=== PATIENT | male | born 1955 | race African-American/Black ===

== ENCOUNTER 2017-06-29 18:44 | Emergency (ER) | payer MEDICARE ==
[2017-06-29] MEDS ORDERED: ACETAMINOPHEN 325 MG TABLET PO ONE (20:22)
--- NOTE | 2017-06-29 20:23 | ER Document Report ---
ED Medical Screen (RME) - General Chief Complaint: Low Back Pain Stated Complaint: BACK PAIN Time Seen by Provider: 06/29/17 20:21 Notes: 62-year-old male here with complaints of right lower back pain ongoing for the past few days. Pain is nonradiating. Pain is worse with movement. Pain is improved with minimizing movement. He has not taken anything for the pain. He denies numbness tingling weakness fevers chills IV drug use however he did snort cocaine and smoked marijuana yesterday. During nurses questioning, he states that he wants to kill himself by walking in front of a moving vehicle. He also states the voices tell him to kill himself. He has not been taking his psych medications and cannot tell me why. TRAVEL OUTSIDE OF THE [place] IN LAST 30 DAYS: No - Related Data Allergies/Adverse Reactions: No Known Allergies Allergy (Verified 06/29/17 18:50) Past Medical History - Social History Frequency of alcohol use: Occasional Drug Abuse: Cocaine, Marijuana - Past Medical History Cardiac Medical History: Reports: Hx Coronary Artery Disease, Hx Hypertension, Hx Peripheral Vascular Disease Pulmonary Medical History: Denies: Hx Tuberculosis Renal/ Medical History: Denies: Hx Peritoneal Dialysis Musculoskeltal Medical History: Reports Hx Arthritis Psychiatric Medical History: Reports: Hx Depression Past Surgical History: Denies: Hx Pacemaker - Immunizations Immunizations up to date: Yes Hx Diphtheria, Pertussis, Tetanus Vaccination: Yes - ordered today Physical Exam - Vital signs Vitals: Temp Pulse Resp BP Pulse Ox 98.6 F 63 16 146/86 H 100 06/29/17 19:12 06/29/17 19:12 06/29/17 19:12 06/29/17 19:12 06/29/17 19:12 Course - Vital Signs Vital signs: Temp Pulse Resp BP Pulse Ox 98.6 F 63 16 146/86 H 100 06/29/17 19:12 06/29/17 19:12 06/29/17 19:12 06/29/17 19:12 06/29/17 19:12
[2017-06-29 20:46] LABS: ABSOLUTE EOSINOPHILS # (AUTO) 0.2 10^3/uL (0.0-0.6); ABSOLUTE LYMPHOCYTES (AUTO) 1.4 10^3/uL (0.5-4.7); ABSOLUTE MONOCYTES (AUTO) 0.4 10^3/uL (0.1-1.4); BASOPHILS % (AUTO) 0.4 % (0-2); EOSINOPHILS % (AUTO) 3.3 % (0-6); HEMATOCRIT 43.8 % (37.9-51.0); HEMOGLOBIN 14.9 g/dL (13.5-17.0); LYMPHOCYTES % (AUTO) 27.9 % (13-45); MEAN CORPUSCULAR HEMOGLOBIN 32.1 pg (27.0-33.4); MEAN CORPUSCULAR HGB CONC 34.1 g/dL (32.0-36.0); MEAN CORPUSCULAR VOLUME 94 fl (80-97); MONOCYTES % (AUTO) 7.4 % (3-13); PLATELET COUNT 222 10^3/uL (150-450); RED BLOOD COUNT 4.64 10^6/uL (4.35-5.55); RED CELL DISTRIBUTION WIDTH 13.9 % (11.5-14.0); TOTAL CELLS COUNTED % (AUTO) 100 %
[2017-06-29 21:09] LABS: ALANINE AMINOTRANSFERASE 35 U/L (21-72); ALBUMIN 4.1 g/dL (3.5-5.0); ALKALINE PHOSPHATASE 73 U/L (38-126); ANION GAP 11 (5-19); ASPARTATE AMINO TRANSFERASE 22 U/L (17-59); BILIRUBIN,DIRECT 0.2 mg/dL (0.0-0.4); BILIRUBIN,TOTAL 0.8 mg/dL (0.2-1.3); BLOOD UREA NITROGEN 17 mg/dL (7-20); CARBON DIOXIDE 27 mmol/L (22-30); CHLORIDE 107 mmol/L (98-107); GLUCOSE 89 mg/dL (75-110); POTASSIUM 3.8 mmol/L (3.6-5.0); SODIUM 144.9 mmol/L (137-145)
[2017-06-29 21:15] LABS: ACETAMINOPHEN < 10 ug/mL (10-30); ALCOHOL < 10 mg/dL (NONE DETECTED); SALICYLATE < 1.0 mg/dL (2.0-20.0)
[2017-06-29 21:18] LABS: APPEARANCE,URINE SLIGHTLY-CLOUDY; BILIRUBIN,URINE NEGATIVE (NEGATIVE); COLOR,URINE YELLOW; GLUCOSE, URINE NEGATIVE (NEGATIVE); KETONES,URINE NEGATIVE (NEGATIVE); LEUKOCYTE ESTERASE,URINE NEGATIVE (NEGATIVE); NITRITE,URINE NEGATIVE (NEGATIVE); PROTEIN,URINE NEGATIVE (NEGATIVE); URINE SPECIFIC GRAVITY 1.023
[2017-06-29] MEDS ORDERED: IBUPROFEN 600 MG TABLET PO PRN (21:23)
[2017-06-29] MEDS ORDERED: ACETAMINOPHEN 325 MG TABLET PO PRN (21:23)
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
[2017-06-29 21:31] LABS: URINE AMPHETAMINES SCREEN NEGATIVE; URINE BARBITURATES SCREEN NEGATIVE; URINE BENZODIAZEPINES SCREEN NEGATIVE; URINE COCAINE SCREEN UNCONFIRMED POSITIVE; URINE MARIJUANA (THC) SCREEN NEGATIVE; URINE METHADONE SCREEN NEGATIVE; URINE PHENCYCLIDINE SCREEN NEGATIVE
[2017-06-30 06:22] VITALS: BP 140/80
--- NOTE | 2017-06-30 07:57 | EKG REPORT ---
SEVERITY:- ABNORMAL ECG - SINUS RHYTHM LEFT VENTRICULAR HYPERTROPHY ANTERIOR Q WAVES, POSSIBLY DUE TO [facility] ST ELEVATION SUGGESTS PERICARDITIS : Confirmed by: Julissa Catalan MD 30-Jun-2017 07:56:09
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
--- NOTE | 2017-06-30 12:42 | ER Document Report ---
ED General - General Chief Complaint: Low Back Pain Stated Complaint: BACK PAIN Time Seen by Provider: 06/29/17 20:21 TRAVEL OUTSIDE OF THE [place] IN LAST 30 DAYS: No - Related Data Allergies/Adverse Reactions: No Known Allergies Allergy (Verified 06/29/17 18:50) Past Medical History - General Information source: Patient - Social History Smoking Status: Current Every Day Smoker Frequency of alcohol use: Occasional Drug Abuse: Cocaine, Marijuana Family History: DM, Hypertension Patient has suicidal ideation: Yes Patient has homicidal ideation: No - Past Medical History Cardiac Medical History: Reports: Hx Coronary Artery Disease, Hx Hypertension, Hx Peripheral Vascular Disease Pulmonary Medical History: Denies: Hx Tuberculosis Renal/ Medical History: Denies: Hx Peritoneal Dialysis Musculoskeltal Medical History: Reports Hx Arthritis Psychiatric Medical History: Reports: Hx Depression Past Surgical History: Denies: Hx Pacemaker - Immunizations Immunizations up to date: Yes Hx Diphtheria, Pertussis, Tetanus Vaccination: Yes - ordered today Physical Exam - Vital signs Vitals: Temp Pulse Resp BP Pulse Ox 98.6 F 63 16 146/86 H 100 06/29/17 19:12 06/29/17 19:12 06/29/17 19:12 06/29/17 19:12 06/29/17 19:12 Course - Re-evaluation Re-evalutation: 06/30/17 12:42 Evaluated by mental health. I feel he is safe for discharge with substance abuse follow-up. - Vital Signs Vital signs: Temp Pulse Resp BP Pulse Ox 98.3 F 70 16 140/80 H 98 06/30/17 06:21 06/30/17 06:21 06/30/17 06:21 06/30/17 06:21 06/30/17 06:21 - Laboratory Result Diagrams: 06/29/17 20:30 06/29/17 20:30 Laboratory results interpreted by me: 06/29/17 06/29/17 20:30 20:45 Urine Blood SMALL H Urine Urobilinogen 2.0 H Salicylates < 1.0 L Acetaminophen < 10 L Discharge - Discharge Clinical Impression: Suicidal thoughts, Cocaine abuse, Marijuana abuse, Alcohol abuse Back pain Qualifiers: Back pain location: low back pain Chronicity: acute Back pain laterality: right Sciatica presence: without sciatica Qualified Code(s): M54.5 - Low back pain Condition: Stable Disposition: HOME, SELF-CARE Additional Instructions: LOW BACK PAIN: Three out of every four people will have an episode of disabling back pain during their lifetime. Most commonly the pain is due to straining of the muscles and ligaments in the low back. Usual treatment includes: (1) Rest on a firm surface. Avoid lying on your stomach. (2) Ice pack the painful area. After a few days, gentle heat may be used intermittently to relax the area, or ice packs can be continued. (3) Medication may be needed -- muscle relaxers and antiinflammatory medicines are commonly used. (4) As the back improves, exercises are prescribed to strengthen the back and abdominal muscles. Your doctor will advise you on the proper care for your back at each stage in your recovery. You may be better in a few days -- or healing may take several weeks. If new symptoms of a "herniated disc" (radiation of pain, numbness, or tingling down the back of the leg or weakness in the leg) occur, you should be re-examined. Further testing may be necessary. ICE PACKS: Apply ice packs frequently against the painful area. Many different schedules are recommended, such as "20 minutes on, 20 minutes off" or "one hour ice, two hours rest." If you need to work, you may need to go longer between ice treatments. You should plan to have the area ice packed AT LEAST one fourth of the time. The ice should be applied over the wrap, tape, or splint, or over a layer of cloth -- not directly against the skin. Some ice bags have a built-in cloth and can be put directly on the skin. WARM PACKS: After approximately two days, apply gentle heat (such as a heating pad or hot water bottle) for about 20 to 30 minutes about every two hours -- at least four times daily. Warmth and elevation will help you make a more rapid recovery , and will ease the pain considerably. Do not use HOT heat, and never apply heat for longer than 30 minutes. The continuous heat can invisibly damage skin and muscles -- even when no burn is seen on the surface. Damaged muscles can make you MORE sore. CHRONIC ALCOHOLISM and ALCOHOL ABUSE: Your evaluation reveals evidence of chronic alcoholism, an addiction to alcohol. The tendency to alcoholism may be inherited. Chronic use of alcohol weakens muscles, causes fatty deposits in the liver , damages the stomach, makes you more prone to infections, and can cause defects in unborn children. In the long run, brain atrophy and cirrhosis of the liver result. You are also at greater risk for certain types of cancer, such as cancer of the mouth, throat, stomach, and liver. Counselling services are available to help you. In-hospital treatment programs often help. Support groups such as Alcoholics Anonymous can be very useful in beating this addiction. Your physician can make a referral for you. As alcoholics often are prone to other addictions, you should discuss your use of any other medications with the doctor. COCAINE ABUSE: Cocaine causes many dangerous medical problems. Problems can occur even with "usual" amounts. Cocaine affects judgement, creating a sense of invulnerability. Cocaine users often make bad decisions that seem "great" at the time. Most cocaine users eventually will be hurt by bad job performance, damaged personal relations, crime, and unsafe sexual practices. Toxic effects of cocaine can include seizures, hallucinations, delusions, high blood pressure, heart damage, or sudden . There's always the risk of a "bad batch." But heart attacks, brain hemorrhages, or cardiac arrest can occur unpredictably even with "normal" use. Injection of cocaine is risky for abscesses, endocarditis (heart infection) , pneumonia, and AIDS. Withdrawal from cocaine often causes anxiety and drug cravings. Some users become paranoid and psychotic. Many treatment programs are available, but you must make the decision to quit. Medication can be prescribed to control the symptoms of cocaine toxicity (beta blockers or benzodiazepines). Withdrawal symptoms may require tranquilizers. FOLLOW-UP CARE: If you have been referred to a physician for follow-up care, call the physician s office for an appointment as you were instructed or within the next two days. Please walk into [facility] upon discharge for your substance abuse treatment. If you experience worsening or a significant change in your symptoms , notify the physician immediately or return to the Emergency Department at any time for re-evaluation. Referrals: [facility] [Outside] - 06/30/17 FRANKO CASTANEDA MD [ACTIVE STAFF] - Follow up as needed
== END 2017-06-30 01:09 | disposition home or self-care (01) ==
LOC: ER 18:44
DX: M54.5 Low back pain (principal); F32.9 Major depressive disorder, single episode, unspecified; R45.851 Suicidal ideations; F12.10 Cannabis abuse, uncomplicated; F14.10 Cocaine abuse, uncomplicated; F10.10 Alcohol abuse, uncomplicated; F17.200 Nicotine dependence, unspecified, uncomplicated; I25.10 Atherosclerotic heart disease of native coronary artery without angina pectoris; I10 Essential (primary) hypertension; Z87.440 Personal history of urinary (tract) infections
CPT/HCPCS: 93005; 99285; 36415; 80307 ×4; 85025; 80053; 81001; 93010; A9270 ×2

== ENCOUNTER 2019-07-30 10:43 | Emergency (ER) | payer MEDICAID, MEDICARE ==
[2019-07-30] MEDS ORDERED: NORMAL SALINE 1000 ML 1,000 ML IV ONE (11:50)
[2019-07-30] MEDS ORDERED: ONDANSETRON HCL INJ/PF 4 MG/2 ML SDV IV ONE (11:50)
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
--- NOTE | 2019-07-30 12:23 | ER Document Report ---
ED General <CHAVO PENALOZA - Last Filed: 07/30/19 16:10> - General TRAVEL OUTSIDE OF THE [place] IN LAST 30 DAYS: No <MINDI MENESES - Last Filed: 07/30/19 18:57> - General Chief Complaint: Psych Problem Stated Complaint: VOMITING,CHILLS Time Seen by Provider: 07/30/19 11:40 Primary Care Provider: [facility] [Provider Group] - Follow up as needed [facility] [Provider Group] - Follow up as needed FRANKO CASTANEDA MD [Primary Care Provider] - Follow up in 3-5 days - [facility] Notes: 64-year-old male to the emergency department with complaints of nausea, vomiting, diarrhea, generalized abdominal pain as well as depression with thoughts of suicide with plan. He states over the past 2 to 3 days he has been getting progressively sicker with nausea vomiting and diarrhea. He is currently homeless and has been homeless for several months and states that several people in the [facility] are sick with something similar. He states that his symptoms got a lot worse yesterday and he has had upwards of 20 episodes of vomiting and diarrhea. He states that he has been running a fever and chills subjectively. He admits that sometimes he feels little short of breath or like he has chest pain and that seems to be alleviated by the vomiting. He states that his entire abdomen hurts but a little bit more so in the epigastrium. He denies any recent travel or recent antibiotic use. He denies any hematemesis or hematochezia. He denies any bright red blood per rectum. In regards to his depression he states that he has been depressed for some time now but is just feeling like his life is not worth it anymore. He states that he has had thoughts of wanting to hurt himself with the plan of either overdosing or stepping out in front of traffic. He also reports hearing voices. He states they are not familiar to him and the voices are telling him to "go on and do it". He has attempted suicide once remotely and cannot recall when. He is not currently on any psychotropic drugs. He does freely admit that he uses cocaine, crack, and marijuana on a daily basis. He states he uses primarily to try to shut out the voices. 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 He does have family in the area but he does not talk to them very much. He denies any he homicidal ideations. He does drink alcohol daily. (MINDI MENESES) - Related Data Allergies/Adverse Reactions: No Known Allergies Allergy (Verified 07/30/19 11:38) Past Medical History - General Information source: Patient - Social History Smoking Status: Current Every Day Smoker Frequency of alcohol use: Social Drug Abuse: Cocaine, Marijuana Lives with: Homeless Family History: DM, Hypertension Patient has suicidal ideation: No Patient has homicidal ideation: No - Past Medical History Cardiac Medical History: Reports: Hx Coronary Artery Disease, Hx Hypertension, Hx Peripheral Vascular Disease Pulmonary Medical History: Denies: Hx Tuberculosis Renal/ Medical History: Denies: Hx Peritoneal Dialysis Musculoskeletal Medical History: Reports Hx Arthritis Psychiatric Medical History: Reports: Hx Depression Past Surgical History: Denies: Hx Pacemaker - Immunizations Immunizations up to date: Yes Hx Diphtheria, Pertussis, Tetanus Vaccination: Yes - ordered today <MINDI MENESES - Last Filed: 07/30/19 18:57> Review of Systems - Review of Systems Constitutional: See HPI, Chills, Fever, Malaise EENT: No symptoms reported Cardiovascular: See HPI, Chest pain. denies: Palpitations, Heart racing, Dyspnea, Syncope, Dizziness, Lightheaded Respiratory: See HPI, Cough, Short of breath Gastrointestinal: See HPI, Abdominal pain, Diarrhea, Nausea, Vomiting. denies: Blood streaked bowels, Black stools, Rectal bleeding Genitourinary: No symptoms reported Musculoskeletal: No symptoms reported Skin: No symptoms reported Neurological/Psychological: See HPI, Hallucinations, Suicidal ideation. denies: Homicidal ideation -: Yes All other systems reviewed and negative <MINDI MENESES - Last Filed: 07/30/19 18:57> Physical Exam - Vital signs Interpretation: Normal - General General appearance: Appears well, Alert In distress: None - HEENT Head: Normocephalic, Atraumatic Eyes: Normal Pupils: PERRL - Respiratory Respiratory status: No respiratory distress Chest status: Nontender. No: Accessory muscle use Breath sounds: Normal. No: Rales, Rhonchi, Stridor, Wheezing Chest palpation: Normal - Cardiovascular Rhythm: Regular Heart sounds: Normal auscultation Murmur: No - Abdominal Inspection: Normal Distension: No distension Bowel sounds: Normal Tenderness: Tender - Mildly tender to palpation to the generalized abdomen. May be slightly more tender in the epigastrium. Negative Yañez sign. There is no rebound or guarding. The abdomen is soft, flat and nondistended. No: McBurney's point, Yañez's sign, Guarding, Rebound Organomegaly: No organomegaly - Back Back: Normal, Nontender. No: CVA tenderness - Neurological Neuro grossly intact: Yes Cognition: Normal Orientation: AAOx4 [place] Coma Scale Eye Opening: Spontaneous Karen Coma Scale Verbal: Oriented Karen Coma Scale Motor: Obeys Commands [place] Coma Scale Total: 15 Speech: Normal Cranial nerves: Normal Cerebellar coordination: Normal Motor strength normal: LUE, RUE, LLE, RLE Additional motor exam normals: Equal chief engineer's helper. No: Pronator drift Sensory: Normal - Psychological Associated symptoms: Auditory hallucinations, Depressed, Flat affect. No: Visual hallucinations - Skin Skin Temperature: Warm Skin Moisture: Dry Skin Color: Normal <MINDI MENESES - Last Filed: 07/30/19 18:57> - Vital signs Vitals: Temp Pulse Resp BP Pulse Ox 97.8 F 63 17 144/94 H 100 07/30/19 10:48 07/30/19 10:48 07/30/19 10:48 07/30/19 10:48 07/30/19 10:48 - Cardiovascular Notes: No pedal edema (MINDI MENESES) - Psychological Notes: Patient reports active suicidal ideations with plan to either overdose or jump into traffic. Patient is slightly withdrawn but very open about was going on with his mental health. He does admit to auditory voices. They are telling him to hurt himself. It does not appear that he is responding to internal stimuli currently. His thought does seem to be linear. He is clinically sober (MINDI MENESES) Course - Laboratory Result Diagrams: 07/30/19 12:44 07/30/19 12:44 <CHAVO PENALOZA - Last Filed: 07/30/19 16:10> - Laboratory Result Diagrams: 07/30/19 12:44 07/30/19 12:44 <MINDI MENESES - Last Filed: 07/30/19 18:57> - Re-evaluation Re-evalutation: 07/30/19 15:14 patient states he is feeling like he may have an appetite. Provided with drink, applesauce, reggie crackers. Noted labs, slight LOUIS -- will give another bolus of fluids. 07/30/19 17:27 Patient has done well tonight in the emergency department. He has tolerated applesauce reggie crackers Gatorade zeny mandy and is currently eating a turkey sandwich as well. He has been seen and evaluated by behavioral health. He denies suicidal ideations currently or any plan to hurt himself. He has been given information for substance abuse programs. He has been cleared from the behavioral health services. Impression: Nausea, vomiting, diarrhea, mild dehydration. Depression. Homelessness. Patient has done well in the emergency department today. He has a soft nontender abdomen on reexam. He has been tolerating food very well and asking for more. Plan will be to discharge the patient home. We will have him follow-up with primary care. (MINDI MENESES) - Vital Signs Vital signs: Temp Pulse Resp BP Pulse Ox 98.5 F 59 L 20 141/66 H 100 07/30/19 18:08 07/30/19 18:08 07/30/19 18:08 07/30/19 18:08 07/30/19 18:08 - Laboratory Laboratory results interpreted by me: 07/30/19 07/30/19 07/30/19 12:15 12:44 12:44 Lymph % (Auto) 6.6 L Absolute Lymphs (auto) 0.4 L Seg Neutrophils % 84.7 H Potassium 3.4 L Carbon Dioxide 31 H BUN 24 H Creatinine 1.57 H Est GFR ( Amer) 54 L Est GFR (MDRD) Non-Af 45 L Total Bilirubin 1.7 H Urine Protein 30 H Urine Blood MODERATE H Salicylates 1.2 L Acetaminophen < 10 L - EKG Interpretation by Me Additional EKG results interpreted by me: 07/30/19 Rate 52, rhythm: sinus, interpretation: No STEMI, positive LVH. Inverted T waves in V3 through V6. In comparison to 06/29/2017 EKG the T wave inversions are new in V3 through V6 but otherwise the same (MINDI MENESES) Discharge <CHAVO PENALOZA - Last Filed: 07/30/19 16:10> <MINDI MENESES - Last Filed: 07/30/19 18:57> - Discharge Clinical Impression: Substance abuse Nausea & vomiting Qualifiers: Vomiting type: unspecified Vomiting Intractability: non-intractable Qualified Code(s): R11.2 - Nausea with vomiting, unspecified Diarrhea Qualifiers: Diarrhea type: unspecified type Qualified Code(s): R19.7 - Diarrhea, unspecified Condition: Stable Disposition: HOME, SELF-CARE Instructions: Diarrhea, Nonspecific ([facility]), Vomiting ([facility]) Additional Instructions: You have been evaluated by both medical and behavioral health teams and have been deemed appropriate for discharge. While you were in the emergency department you received the following services, medical screening and assessment, pharmacological services, nutrition, dietary services, one-on-one counseling and/or psychoeducation, and environmental services. You have been provided with a substance abuse treatment resource list. Per discussion with the behavioral health team, you are encouraged to reach out to [facility] for assistance. Cocaine Abuse Cocaine causes many dangerous medical problems. Problems can occur even with "usual" amounts. Cocaine affects judgement, creating a sense of invulnerability. Cocaine users often make bad decisions that seem "great" at th e time. Most cocaine users eventually will be hurt by bad job performance, damaged personal relations, crime, and unsafe sexual practices. Toxic effects of cocaine can include seizures, hallucinations, delusions, high blood pressure, heart damage, or sudden . There's always the risk of a "bad batch." But heart attacks, brain hemorrhages, or cardiac arrest can occur unpredictably even with "normal" use. Injection of cocaine is risky for abscesses, endocarditis (heart infection), pneumonia, and AIDS. Withdrawal from cocaine often causes anxiety and drug cravings. Some users become paranoid and psychotic. Many treatment programs are available, but you must make the decision to quit. Medication can be prescribed to control the symptoms of cocaine toxicity (beta blockers or benzodiazepines). Withdrawal symptoms may require tranquilizers. SUICIDAL IDEATION: Suicidal ideation is a common medical term for thoughts about suicide, which may be as detailed as a formulated plan, without the suicidal act itself. Although most people who undergo suicidal ideation do not commit suicide, some go on to make suicide attempts. The range of suicidal ideation varies greatly from fleeting to detailed planning, role playing, and unsuccessful attempts. While thoughts about suicide are common, most people do not carry out serious actions to commit suicide. Based upon your evaluation and discussion with you, we do not believe you are currently at risk to act upon your thoughts of suicide. You have agreed to return to the Emergency Department, at any time, if you feel inclined to act upon your suicidal thoughts. PLEASE PUSH FLUIDS. TAKE MEDICINES PRESCRIBED. FOLLOW UP WITH PRIMARY CARE. AT ANY TIME, IF YOUR SYMPTOMS CHANGE SIGNIFICANTLY OR WORSEN OR YOU DEVELOP NEW SYMPTOMS, RETURN TO THE EMERGENCY DEPARTMENT IMMEDIATELY FOR RE-EVALUATION. Prescriptions: Dicyclomine HCl [Bentyl 20 mg Tablet] 20 mg PO QID PRN #10 tablet PRN Reason: Ondansetron [Zofran Odt 4 mg Tablet] 1 - 2 tab PO Q4H PRN #15 tab.rapdis PRN Reason: For Nausea/Vomiting Referrals: FRANKO CASTANEDA MD [Primary Care Provider] - Follow up in 3-5 days [facility] [Provider Group] - Follow up as needed [facility] [Provider Group] - Follow up as needed
[2019-07-30 12:47] LABS: APPEARANCE,URINE SLIGHTLY-CLOUDY; BILIRUBIN,URINE NEGATIVE (NEGATIVE); COLOR,URINE YELLOW; GLUCOSE, URINE NEGATIVE (NEGATIVE); KETONES,URINE NEGATIVE (NEGATIVE); LEUKOCYTE ESTERASE,URINE NEGATIVE (NEGATIVE); NITRITE,URINE NEGATIVE (NEGATIVE); PROTEIN,URINE 30 mg/dL (NEGATIVE); URINE SPECIFIC GRAVITY 1.028; UROBILINOGEN,URINE NEGATIVE mg/dL (<2.0)
[2019-07-30 12:56] LABS: ABSOLUTE LYMPHOCYTES (AUTO) 0.4 10^3/uL (0.5-4.7); ABSOLUTE MONOCYTES (AUTO) 0.5 10^3/uL (0.1-1.4); ABSOLUTE NEUT (AUTO) 5.2 10^3/uL (1.7-8.2); BASOPHILS % (AUTO) 0.3 % (0-2); EOSINOPHILS % (AUTO) 0.6 % (0-6); HEMATOCRIT 43.6 % (37.9-51.0); HEMOGLOBIN 15.2 g/dL (13.5-17.0); LYMPHOCYTES % (AUTO) 6.6 % (13-45); MEAN CORPUSCULAR HEMOGLOBIN 32.9 pg (27.0-33.4); MEAN CORPUSCULAR HGB CONC 34.9 g/dL (32.0-36.0); MEAN CORPUSCULAR VOLUME 94 fl (80-97); MONOCYTES % (AUTO) 7.8 % (3-13); PLATELET COUNT 190 10^3/uL (150-450); RED BLOOD COUNT 4.63 10^6/uL (4.35-5.55); RED CELL DISTRIBUTION WIDTH 13.8 % (11.5-14.0); SEGMENTED NEUTROPHILS % (AUTO) 84.7 % (42-78); TOTAL CELLS COUNTED % (AUTO) 100 %; WHITE BLOOD COUNT 6.2 10^3/uL (4.0-10.5)
[2019-07-30 13:00] LABS: URINE AMPHETAMINES SCREEN NEGATIVE; URINE BARBITURATES SCREEN NEGATIVE; URINE BENZODIAZEPINES SCREEN NEGATIVE; URINE METHADONE SCREEN NEGATIVE; URINE PHENCYCLIDINE SCREEN NEGATIVE
[2019-07-30 13:01] LABS: URINE COCAINE SCREEN UNCONFIRMED POSITIVE; URINE MARIJUANA (THC) SCREEN UNCONFIRMED POSITIVE
[2019-07-30] MEDS ORDERED: FAMOTIDINE INJ/PF 20 MG/2 ML SDV IV ONE (13:04)
[2019-07-30 13:17] LABS: A TYPE INFLUENZA AG NEGATIVE (NEGATIVE); B INFLUENZA AG NEGATIVE (NEGATIVE)
[2019-07-30 13:21] LABS: ALKALINE PHOSPHATASE 83 U/L (38-126); ANION GAP 9 (5-19); ASPARTATE AMINO TRANSFERASE 22 U/L (17-59); BILIRUBIN,DIRECT 0.1 mg/dL (0.0-0.4); BILIRUBIN,TOTAL 1.7 mg/dL (0.2-1.3); BLOOD UREA NITROGEN 24 mg/dL (7-20); CALCIUM 9.2 mg/dL (8.4-10.2); CARBON DIOXIDE 31 mmol/L (22-30); CHLORIDE 101 mmol/L (98-107); GLUCOSE 99 mg/dL (75-110); POTASSIUM 3.4 mmol/L (3.6-5.0); SALICYLATE 1.2 mg/dL (2.0-20.0); TOTAL PROTEIN 7.7 g/dL (6.3-8.2)
[2019-07-30 13:23] LABS: ACETAMINOPHEN < 10 ug/mL (10-30); ALCOHOL < 10 mg/dL (NONE DETECTED)
--- NOTE | 2019-07-30 14:21 | RADIOLOGY REPORT (SQ) ---
EXAM DESCRIPTION: CHEST 2 VIEWS COMPLETED DATE/TIME: 07/30/2019 2:07 pm REASON FOR STUDY: NV, chest pain COMPARISON: 04/10/2015 EXAM PARAMETERS: NUMBER OF VIEWS: two views TECHNIQUE: Digital Frontal and Lateral radiographic views of the chest acquired. RADIATION DOSE: NA LIMITATIONS: none FINDINGS: LUNGS AND PLEURA: Interstitial markings are prominent but unchanged. No consolidation. N o effusions. No pneumothorax. MEDIASTINUM AND HILAR STRUCTURES: No masses or contour abnormalities. HEART AND VASCULAR STRUCTURES: Heart normal size. No evidence for failure. BONES: No acute findings. HARDWARE: None in the chest. OTHER: No other significant finding. IMPRESSION: Prominent interstitial markings most likely chronic. No acute findings. TECHNICAL DOCUMENTATION: JOB ID: [id number] [employer]- All Rights Reserved Reading location - IP/workstation name: [email or web address]
[2019-07-30] MEDS ORDERED: NORMAL SALINE 500 ML IV ONE (15:11)
--- NOTE | 2019-07-30 16:10 | PSYCHOLOGICAL NOTE ---
Psych Note - Psych Note Date seen by psych provider: 07/30/19 Time seen by psych provider: 12:30 Psych Note: Patient is a 64-year-old male who presents to ED via POV for chief complaints of nausea, vomiting and diarrhea. Patient reports that 2 days ago after being at the homeless longterm and exposed to sick contacts he developed nausea, vomiting diarrhea. Patient reports he is having body aches and generalized stomachaches. Patient reports he is vomited over 20 times and had 20 episodes of diarrhea. Patient reports daily use of crack cocaine. Patient states he "smokes marijuana all day." Patient's urine drug screen is positive for cocaine and THC only. Patient was seen by behavioral health on 04/10/2015 and 06/30/2017 for same etiology (SI; stressful living situation; daily crack cocaine, THC, and ETOH use). On both occasions patient was encouraged to seek substance abuse treatment. Patient states he is "sick and tired of being sick and tired." Patient states he has been struggling for "months" with his substance abuse issues. Patient states the only thing that has changed since he was last in the ED is a separation from his 2.5 years ago. Patient states he has been living at the longterm "a couple of months." Patient reports having friends and family in the area, however stated "I don't mess with them." Patient reports smoking marijuana "all day" and consuming "$150-160" (patient states "a little over a gram") of crack cocaine on Tuesday. Patient states he receives a monthly disability check for medical reasons. Patient denies prior mental health diagnosis. Patient denies prior psychiatric inpatient hospitalizations. Patient reports one prior suicide attempt "about a year ago" via "walking out infront of a truck but it stopped." Patient reports command auditory hallucinations that tell him to "go on and do it...what are you waiting for." Patient states he uses substances in an attempt to "ignore it." Patient states the command auditory hallucinations coincide with his substance use. Clinician spoke with patient about substance abuse treatment through [facility]. Patient replied, "I'll try anything once." Clinician reached out to [facility] and was informed their facility would be unable to assist patient as they do not detox those who are addicted to crack cocaine. Patient was informed. Patient replied by asked for a meal. Clinician replied that the nurse would be made aware. Clinician asked how patient was feeling after medical intervention. Patient replied, "better." Patient denied SI/HI. Clinician provided information regarding [facility] and their ability to link with resources. Patient is alert and oriented to person, place, time and circumstance. Mood is normal with congruent affect. Delusions are absent and behavior is congruent with an intact reality based presentation (i.e., organized and linear through processes). There is no observed behavior that suggests patient is responding to internal stimuli. Patient is able to engage in organized, rational thought processes. Patient is able to express needs and wants in a logical manner. Eye contact is appropriate. Conversational speech is within normal rate, tone, and prosody. Intellectual ability appears to be within average range. Attention and concentration are good. Insight, judgment and impulse control are currently poor. Impression/Plan: Patient is cleared from acute psychiatric services. Patient was seen by behavioral health team team on 04/10/2015 and 06/30/2017 with the same etiology. Patient stated the only thing that has changed is from his . Patient reports command auditory hallucinations that coincide with his substance use. Patient verbalized insight that his chronic crack cocaine use has negatively affected his mental and physical health. Patient acknowledges his substance abuse is a problem, and understands treatment options and has the ability to comply with treatment. Patient is able to identify that his command auditory hallucinations coincide with his substance use. Patient has no confirmed mental health diagnosis. Patient endorses suicidal ideation with no true plan, means, or intent. This is the same presentation as the 04/10/2015 and 06/30/2017 ED visits. Patient has no verified suicide attempt. Patient reports a prior suicide attempt via walking out infront of a truck, again same presentation as the 04/10/2015 and 06/30/2017 ED visit. Patient has friends and family in the area, however reports estrangement. Patient is agreeable to substance abuse treatment and was provided with a substance abuse treatment resource list. Patient was encouraged to reached out to [facility]. Dr. Galicia was consulted on the care and management of this patient; attending physician is in agreement with recommendations and disposition.
[2019-07-30 18:13] VITALS: BP 141/66
--- NOTE | 2019-07-30 20:44 | EKG REPORT ---
SEVERITY:- ABNORMAL ECG - SINUS RHYTHM LVH WITH SECONDARY REPOLARIZATION ABNORMALITY : Confirmed by: Vinay Brown 30-Jul-2019 20:43:28
== END 2019-07-30 18:13 | disposition home or self-care (01) ==
LOC: ER 10:43
DX: F19.10 Other psychoactive substance abuse, uncomplicated (principal); E86.0 Dehydration; R11.2 Nausea with vomiting, unspecified; R19.7 Diarrhea, unspecified; R44.0 Auditory hallucinations; Z59.0 Homelessness; M79.10 Myalgia, unspecified site; R10.84 Generalized abdominal pain; R45.851 Suicidal ideations; I25.10 Atherosclerotic heart disease of native coronary artery without angina pectoris; I10 Essential (primary) hypertension; F32.9 Major depressive disorder, single episode, unspecified
CPT/HCPCS: 93005; 99285; 96361; 96374; 96375; 36415; 80307 ×4; 85025; 80053; 81001; 84484; 87804; 71046; 93010; J2405; J7030; J7040; S0028